=== PATIENT | female | born 1950 | race Two or more races ===

== ENCOUNTER 2022-04-01 08:11 | Outpatient (CLI) | payer OTHER | END 2022-04-01 08:22 | disposition home or self-care (01) | LOC: RX STUDY 08:11 | PROVIDERS: ATTEND Internal Medicine Gastroenterology | DX: E03.8 Other specified hypothyroidism (principal); R13.10 Dysphagia, unspecified ==

== ENCOUNTER 2024-05-02 08:56 | Outpatient (CLI) | payer OTHER | END 2024-05-02 09:00 | disposition home or self-care (01) | LOC: SONOGRAMA 08:56 | PROVIDERS: ATTEND Internal Medicine Endocrinology, Diabetes & Metabolism | DX: E04.2 Nontoxic multinodular goiter (principal) ==